=== PATIENT | male | born 1965 | race Two or more races ===

== ENCOUNTER 2017-12-02 19:46 | Inpatient (IN) | payer MEDICARE, MEDICAID ==
--- NOTE | 2017-12-02 20:13 | ED Physician Chart ---
ED Chief Complaint/HPI - Patient Information Date Seen:: 12/02/17 Time Seen:: 20:10 Chief Complaint:: AGITATION History of Present Illness:: 52 YR OLD MALE WITH PSYCH PROBLEMS FROM THE CUSTODIAL FOR AGITATIONS HALLUCINATIONS Historian:: Patient, EMS, Medical Records ED Review of Systems - Review of Systems General/Constitutional: No fever, No chills, No weight loss, No weakness, No diaphoresis, No edema, No loss of appetite Skin: No skin lesions, No rash, No bruising Head: No headache, No light-headedness Eyes: No loss of vision, No pain, No diplopia ENT: No earache, No nasal drainage, No sore throat, No tinnitus Neck: No neck pain, No swelling, No thyromegaly, No stiffness, No mass noted Cardio Vascular: No chest pain, No palpitations, No PND, No orthopnea, No edema Pulmonary: No SOB, No cough, No sputum, No wheezing GI: No nausea, No vomiting, No diarrhea, No pain, No melena, No hematochezia, No constipation, No hematemesis G/U: No dysuria, No frequency, No hematuria Musculoskeletal: No bone or joint pain, No back pain, No muscle pain Endocrine: No polyuria, No polydipsia Psychiatric: No prior psych history, No depression, No anxiety, No suicidal ideation Hematopoietic: No bruising, No lymphadenopathy Allergic/Immuno: No urticaria, No angioedema Neurological: No syncope, No focal symptoms, No weakness, No paresthesia, No headache, No seizure, No dizziness, No confusion, No vertigo ED Past Medical History - Past Medical History Past Medical History: Other (PSYCH DISORDER) ED Physical Exam - Physical Examination General/Constitutional: Awake, Well-developed, well-nourished, Alert, No distress, GCS 15, Non-toxic appearing, Ambulatory Head: Atraumatic Eyes: Lids, conjuctiva normal, PERRL, EOMI Skin: Nl inspection, No rash, No skin lesions, No ecchymosis, Well hydrated, No lymphadenopathy ENMT: External ears, nose nl, Nasal exam nl, Lips, teeth, gums nl Neck: Nontender, Full ROM w/o pain, No JVD, No nuchal rigidity, No bruit, No mass, No stridor Respiratory: Nl effort/Exclusion, Clear to Auscultation, No Wheeze/Rhonchi/Rales Cardio Vascular: RRR, No murmur, gallop, rubs, NL S1 S2 GI: No tenderness/rebounding/guarding, No organomegaly, No hernia, Normal BS's, Nondistended, No mass/bruits, No McBurney tenderness : No CVA tenderness Extremities: No tenderness or effusion, Full ROM, normal strength in all extremities, No edema, Normal digits & nails Neuro/Psych: Alert/oriented, DTR's symmetric, Normal sensory exam, Normal motor strength, Judgement/insight normal, Mood normal, Normal gait, No focal deficits Misc: Normal back, No paraspinal tenderness ED Assessment - Assessment General Assessment: PSYCHOSIS AGITATION FOR EVAL ED Septic Shock - . Is Septic Shock (SBP<90, OR Lactate>4 mmol\L) present?: No ED Discharge Plan - Patient Disposition Admit/Discharge/Transfer: Acute Care w/in this hosp Condition at Disposition: Stable
[2017-12-02 20:55] LABS: % EOSINOPHILS 2.4 % (0.0-5.0); % LYMPHOCYTES 31.7 % (20.0-50.0); % MONOCYTES 4.2 % (2.0-10.0); % NEUTROPHILS 60.7 % (40.0-80.0); BASOPHILE ABSOLUTE 0.1 Th/cumm (0-0.2); EOSINOPHILE ABSOLUTE 0.2 Th/cmm (0.1-0.4); HEMOGLOBIN 15.2 gm/dL (12-16); LYMPHOCYTE ABSOLUTE 2.8 Th/cmm (1.5-3.0); MEAN CELL VOLUME 87.9 fl (80-99); MEAN CORPUSCULAR HEMOGLOBIN 30.4 pg (26.0-30.0); MEAN CORPUSCULAR HGB CONC 34.6 pg (28.0-36.0); MEAN PLATELET VOLUME 8.2 fl; MONOCYTE ABSOLUTE 0.4 Th/cmm (0.3-1.0); NEUTROPHILE ABSOLUTE 5.4 Th/cmm (1.8-8.0); PLATELET COUNT 153 Th/cmm (150-400); RED BLOOD COUNT 5.01 Mil/cmm (4.30-5.70); RED CELL DISTRIBUTION WIDTH 12.3 % (11.5-20.0); WHITE BLOOD COUNT 8.9 Th/cmm (4.8-10.8)
[2017-12-02 21:13] LABS: ALB/GLOB RATIO 1.6 (1.0-1.8); ALBUMIN 4.1 gm/dL (4.2-5.5); ALKALINE PHOSPHATASE 125 U/L (34-104); ANION GAP 9.7 (7.0-16.0); BUN - UREA NITROGEN 18 mg/dL (7-25); CALCIUM SERUM 9.3 mg/dL (8.6-10.3); CARBON DIOXIDE 26.9 mEq/L (21.0-31.0); CHLORIDE 105 mEq/L (98-107); GFR AFRICAN-AMERICAN > 60.0 ml/min (>90); GFR NON AFRICAN-AMERICAN > 60.0 ml/min; GLUCOSE 136 mg/dL (70-105); POTASSIUM SERUM 3.6 mEq/L (3.5-5.1); SGOT 17 U/L (13-39); SGPT/ALT 25 U/L (7-52); SODIUM SERUM 138 mEq/L (136-145); TOTAL PROTEIN,SERUM 6.7 gm/dL (6.0-8.3)
[2017-12-02 21:26] LABS: BILIRUBIN,TOTAL 0.3 mg/dL (0.3-1.0)
[2017-12-03 00:32] VITALS: BP 117/72
--- NOTE | 2017-12-03 10:37 | Diagnostic Imaging Report ---
Portable chest x-ray History: Shortness of breath Allowing for portable technique the heart size is normal. Cardiac electrode lead wires project over the right atrium and right ventricle. No focal pulmonary parenchymal processes. No hilar or mediastinal abnormalities. Impression: No acute abnormalities.
--- NOTE | 2017-12-04 02:24 | Psychosocial Evaluation ---
DATE OF SERVICE: 12/03/2017 JUSTIFICATION FOR HOSPITALIZATION: Agitation and hallucinations. CHIEF COMPLAINT: "I got mad." HISTORY OF PRESENT ILLNESS: A 52-year-old male with history of psychiatric disorder, Risperdal in the past, agitated, hallucinating, states that he is here because he is "sick." Some depression noted. Notes he feels depressed and withdrawn. The patient notes he has medical problems, feels "sick." Nursing staff noting a very poor sleep, multiple medical problems, apparent history of bipolar. He had been aggressive and threatening at the nursing facility, hearing voices telling hit his head on the wall. The patient is not the best historian, but does tell me he has been on Risperdal in the past. PAST PSYCHIATRIC HISTORY: Hospitalizations in the past, unclear reasons. MEDICAL: Please see full H and P. MEDICATIONS: Noted. SOCIAL HISTORY: States he was born in [place], not , no kids, no drugs. No alcohol, no tobacco. States he is residing in a fci. MENTAL STATUS EXAMINATION: Stated age, overweight male, wearing diapers. Fair eye contact. Speech, impoverished. Mood, "sick." Affect, flat. Thought processes were somewhat disoriented. No HI, but apparently he was making threats to hit his head against the wall, also with hallucinations and voices. Insight and judgment diminished. PROVISIONAL DIAGNOSES: Schizophrenia versus bipolar; anxiety, unspecified; mood, unspecified. Under medical, please see full H and P. ESTIMATED LENGTH OF STAY: 5-7 days. ASSESSMENT: The patient remains symptomatic, aggressive, psychotic, wants to hurt himself. PLAN: We will restart Risperdal. TREATMENT PLAN: Includes group as well as milieu therapy. CONDITIONS FOR DISCHARGE: Improved mood, improved affect, cessation of any SI, better control of his psychotic symptoms. JOB# [id number]
--- NOTE | 2017-12-04 17:34 | Progress Notes ---
DATE: 12/04/2017 SUBJECTIVE: A 52-year-old male with history of psych disorder, Risperdal in the past, agitated, hallucinations. The patient is complaining of lower back pain, states he feels "bad." History of aggressive behaviors, threatening behaviors, hearing voices. Staff noting fair sleep, distressed, agitation, poor orientation, mostly in his room. He is wearing diapers. He is pretty impoverished. ASSESSMENT: The patient is here for agitation and aggressive behaviors. He remains impulsive, highly unpredictable. PLAN: We will continue to monitor. Recommend Tylenol or ibuprofen for back pain. We will continue Risperdal with plans to titrate as tolerated. [facility]# [id number]
--- NOTE | 2017-12-04 21:54 | History and Physical ---
History of Present Illness - HPI Chief Complaint: Mental health disorder HPI: 52 yrs old male with underlying Diastolic heart failure pacemaker in place obesity who lives at [facility] was admitted to [facility] for evaluation and treatment of his mental health issue. I was consulted for medical evaluation. Vital Signs: Last Vital Signs Temp 99.0 F 12/04/17 20:28 Pulse 71 12/04/17 20:28 Resp 18 12/04/17 20:28 BP 122/73 12/04/17 20:28 Pulse Ox 95 12/04/17 20:28 Past Medical History Cardiovascular: Report: CHF Pulmonary: Report: No Pertinent Hx [employer]: Report: No Pertinent Hx GI: Report: No Pertinent Hx Psych: Report: Psychosis Musculoskeletal: Report: Low Back Pain, Stiffness Rheumatologic: Report: No pertinent Hx Infectious Disease: Report: No Pertinent Hx Endocrine: Report: No Pertinent Hx Dermatology: Report: No Pertinent Hx Family Medical History - Family Member Mother History Unknown: Yes Ethnicity: Living Status: Unknown Social History Smoke: No Alcohol: None Drugs: None Lives: [facility] - Medications Home Medications: Home Medication Medication Instructions Recorded Type Docusate Sodium [Colace] 100 mg PO BID 12/02/17 History Lorazepam [Ativan] 2 mg PO Q6HR PRN 12/02/17 History Aripiprazole 30 mg PO HS 12/03/17 History Cranberry Fruit Concentrate 450 mg PO DAILY 12/03/17 History [Cranberry] Furosemide [Lasix] 1 tab PO DAILY 12/03/17 History Lurasidone HCl [Latuda] 1 tab PO HS 12/03/17 History Oxybutynin Chloride [Oxybutynin 1 tab PO HS 12/03/17 History Chloride ER] Potassium Chloride 1 tab PO 12/03/17 History Risperidone 4 mg PO BID 12/03/17 History Topiramate 100 mg PO BID 12/03/17 History fluvoxaMINE Maleate [Luvox] 100 mg PO BID 12/03/17 History - Allergies Allergies/Adverse Reactions: Allergies Allergy/AdvReac Type Severity Reaction Status Date / Time aspirin Allergy Verified 12/02/17 20:43 oxytetracycline Allergy Verified 12/02/17 20:43 [From Terramycin] Penicillins Allergy Verified 12/02/17 20:43 tetracycline Allergy Verified 12/02/17 20:43 Review of Systems - Review of Systems Constitutional: Report: No Significant Eyes: Report: No Significant ENT: Report: No Significant Respiratory: Report: No Significant Cardiovascular: Report: No Significant Gastrointestinal: Report: No Significant Genitourinary: Report: No Significant Musculoskeletal: Report: Back Pain Skin: Report: No Significant Neurological: Report: No Significant Physical Exam - Physical Exam Neck: Report: Within normal limits Cardiovascular Systems: Report: Regular, Rate and Rhythm Respiratory: Report: Clear to Auscultation of lung roe Abdomen: Report: Non-tender to palpation Back: Report: Inspection of back is within normal limits. Extremities: Report: Pedal edema was noted on inspection Skin: Report: Color of skin is within normal limits Neuro/Psych: Report: No motor deficit - Lab Results All Lab Results last 24 hours: Microbiology 12/02/17 20:41 - Preliminary Blood NO GROWTH AFTER 48 HOURS 12/02/17 20:31 - Preliminary Blood NO GROWTH AFTER 48 HOURS 12/02/17 22:20 - Final Nares NO MRSA ISOLATED - Assessment Assessment: Diastolic heart failure Bilateral leg edema Low back pain Mental health disorder - Plan Plan: Continue Lasix with K Monitor leg edema Motrin prn Psych managment per psych Plan of care discussed with nursing staff Thank you
--- NOTE | 2017-12-05 08:12 | Progress Notes ---
DATE: 12/05/2017 SUBJECTIVE: The patient in the hospital, mostly in his room, stays to himself, here because of impulsivity, aggressive behaviors, complains of some generalized body pain, mostly in his room, states he feels "okay", somewhat disoriented to year and month, still remains anxious, highly depressed, guarded. No agitation, no escalation of behaviors. Medications were noted. He states that he can walk, but there are concerns about his ability to care for himself. PLAN: We will continue to monitor. We will coordinate care with social work regarding safe discharge plan and good psychiatric followup. We will monitor for any bouts of depression or changes in behaviors. [facility]# [id number]
[2017-12-05] MEDS: Potassium Chloride 20 mEq ER Tab PO SCH (09:21)
[2017-12-06] MEDS: Potassium Chloride 20 mEq ER Tab PO SCH (09:30)
--- NOTE | 2017-12-07 07:48 | Progress Notes ---
DATE: 12/06/2017 SUBJECTIVE: The patient is currently in the hospital sleeping well, better ADLs, better orientation mostly to himself, stays in his bed, somewhat guarded, suspicious, changes in mentation. He is fairly oriented now, but staff noting sometimes he gets more confused, disoriented, still complaining of generalized body pains and aches. He would like to leave the hospital. It is unclear where he is going to go when he leaves the hospital. There is no confirmed discharge plan. The patient denying any overt anxiety, currently on Risperdal, seems to be tolerating it well. ASSESSMENT: The patient remains symptomatic, concerns for an underlying thought disorder, psychosis. He is pretty withdrawn, seemingly paranoid. PLAN: Increase Risperdal today. Medications were noted. Given his ongoing symptoms, he is not safe for discharge. JOB# [id number]
[2017-12-07] MEDS: Potassium Chloride 20 mEq ER Tab PO SCH (08:28)
[2017-12-08] MEDS: Potassium Chloride 20 mEq ER Tab PO SCH (09:44)
--- NOTE | 2017-12-08 18:00 | Progress Notes ---
DATE: SUBJECTIVE: Chart reviewed and the patient interviewed. Also discussed the patient's condition with the staff and reviewed records and labs. The patient is calm and cooperative. The patient also is withdrawn. Also is interacting, was suspicious. Also, still reporting auditory hallucinations and he is hearing voices, but has difficulty expressing what they say and "too bad things." The patient also reports that the voices "like screaming." He also still seems to be confused and still has difficulty carrying on coherent conversation. On the other hand, the patient did talk about his desire not to go back to the long-term in [facility] and wanted to change long-term. ASSESSMENT: The patient is still confused and still psychotic. TREATMENT PLAN: Continue to work on his behavior and adjusting psychotropic medications. Also, working with case management specialist in regard to discharge plan and if possible, changing the placement. JOB# [id number]
--- NOTE | 2017-12-09 01:45 | Progress Notes ---
DATE: 12/08/2017 PSYCHIATRIC PROGRESS NOTE: Chart reviewed and the patient interviewed. Also discussed the patient's condition with the staff and reviewed records and labs. The patient continued to be cooperative and is less anxious. Also, he is pleasant. Also, he is trying to answer questions. The patient also is trying to enter . Placement is still an issue and case finishing machine adjuster is still working on placement issue for the patient. Otherwise, the patient is compliant with taking his medications with no side effects of medications. ASSESSMENT: The patient still needs placement. TREATMENT PLAN: Continue to work on his ineffective coping and also working with case finishing machine adjuster in regard to discharge plans and placement issue. JOB# [id number]
[2017-12-09] MEDS: Potassium Chloride 20 mEq ER Tab PO SCH (08:50)
[2017-12-09] MEDS ORDERED: Haloperidol Lactate 5 mg/mL 1mL Vial ONE (16:40)
[2017-12-09] MEDS ORDERED: Haloperidol Lactate 5 mg/mL 1mL Vial IM ONE (16:50)
[2017-12-10] MEDS: Potassium Chloride 20 mEq ER Tab PO SCH (09:02)
--- NOTE | 2017-12-10 11:36 | Progress Notes ---
DATE: SUBJECTIVE: Chart reviewed and the patient interviewed. Also discussed the patient's condition with the staff and reviewed records and labs. The patient is still actively hallucinating and he is still actively responding to stimuli. The patient is talking to himself and is still suspicious and paranoid. Also, is impulsive and is still intrusive. Otherwise, the patient is compliant with taking his medications with no side effects of medications. ASSESSMENT: The patient is still irritable and is still paranoid. TREATMENT PLAN: Continue to monitor his behavior and his condition closely. Also, continue to work on poor impulse control and his paranoia. JOB# [id number]
--- NOTE | 2017-12-10 20:14 | Progress Notes ---
DATE: SUBJECTIVE: Chart reviewed and the patient interviewed. Also discussed the patient's condition with the staff and reviewed records and labs. The patient continued to be suspicious and continued to be paranoid. The patient also is still confused and forgetful and have disorganized thoughts. The patient also has periods of severe agitation. Otherwise, the patient . The patient denies any side effects . ASSESSMENT: The patient is still agitated and in irritable mood. TREATMENT PLAN: Continue to monitor his behavior and his condition closely. Also, continue working on adjusting psychotropic medications and on behavioral modification. JOB# [id number]
[2017-12-11] MEDS: Potassium Chloride 20 mEq ER Tab PO SCH (09:07)
--- NOTE | 2017-12-12 02:49 | Progress Notes ---
DATE: 12/11/2017 SUBJECTIVE: Chart reviewed and the patient interviewed. Also, discussed the patient's condition with the staff and reviewed records and labs. The patient continued to be suspicious and paranoid. The patient also is impulsive and he continued to talk to himself. Also, confused and forgetful and has disorganized thoughts. The patient also still gets agitated at times and has poor impulse control and flat affect. Otherwise, the patient continued to comply with taking his medications with no side effects of medications. ASSESSMENT: The patient is still psychotic and need close monitoring. TREATMENT PLAN: Continue adjusting psychotropic medications and monitor his condition closely and continue to follow up. JOB# [id number]
[2017-12-12] MEDS: Potassium Chloride 20 mEq ER Tab PO SCH (08:43)
--- NOTE | 2017-12-12 23:32 | Progress Notes ---
DATE: SUBJECTIVE: Chart reviewed and the patient interviewed. Also discussed the patient's condition with the staff and reviewed records and labs. The patient is still forgetful and confused. The patient also is still guarded and depressed. Also, still have poor impulse control with flat affect. The patient continued to take Risperdal 1 mg twice a day with no side effects. ASSESSMENT: The patient is still agitated and psychotic. TREATMENT PLAN: Continue to monitor his behavior and his condition closely and continue to work on his discharge plans and placement issue. JOB# [id number]
[2017-12-13] MEDS: Potassium Chloride 20 mEq ER Tab PO SCH (08:16)
--- NOTE | 2017-12-13 19:06 | Discharge Summary ---
DATE OF DISCHARGE: 12/13/2017 DATE OF DISCHARGE: 12/13/2017. AGE: 52. SEX: Male. PHYSICIAN: Dr. Sandoval. FINAL DIAGNOSES: PRIMARY DIAGNOSES: Schizoaffective disorder, bipolar type, with psychotic features, severe. REASON FOR HOSPITALIZATION: The patient was admitted to the hospital from [facility] because of increased agitation and irritability. The patient also was restless and was in angry and in irritable mood. He also was having mood swings and easily agitated. He also was guarded and was withdrawn. He needed lots of redirections. The patient also was obsessed with his watch and wanted to have a watch and in a way. Gradually, the patient's affect was brighter and was less irritable and less agitated and he was easier to redirect. Physical exam of the patient showed no major medical problems and the blood workup also showed no major abnormalities. AFTER DISCHARGE PLANS: The patient discharged from the hospital and went back to [facility] with plan to follow up there. EXPECTED OUTCOME AFTER DISCHARGE: Fair if the patient continues with outpatient treatment and with discharge plans. JOB# [id number]
== END 2017-12-13 20:20 | DRG 885 ==
LOC: ER 19:46 → GERO2 22:00
PROVIDERS: ADMIT Psychiatry & Neurology Psychiatry; ATTEND Psychiatry & Neurology Psychiatry
DX: F25.0 Schizoaffective disorder, bipolar type (principal); I50.30 Unspecified diastolic (congestive) heart failure; F23 Brief psychotic disorder; F41.9 Anxiety disorder, unspecified; F39 Unspecified mood [affective] disorder; M54.5 Low back pain; E66.9 Obesity, unspecified; Z68.37 Body mass index [BMI] 37.0-37.9, adult; Z79.82 Long term (current) use of aspirin; Z88.0 Allergy status to penicillin; Z88.8 Allergy status to other drugs, medicaments and biological substances; Z95.0 Presence of cardiac pacemaker
CPT/HCPCS: 36415-UA; 71045-TC; 80053-TC; 85025-TC; 93005; G0410; J1200; J1630; J2060